=== PATIENT | female | born 1950 | race Caucasian/White ===

== ENCOUNTER → 2017-03-31 | Outpatient (CLI) | payer OTHER ==
[2017-03-31 12:06] LABS: BUN 17 mg/dL (7-18)
[2017-03-31 12:12] LABS: GFR (ESTIMATED) 63 ML/MIN (59-)
== END ==
LOC: LAB 09:52
PROVIDERS: Family Medicine
DX: I10 Essential (primary) hypertension (principal); E03.9 Hypothyroidism, unspecified; E55.9 Vitamin D deficiency, unspecified; M25.50 Pain in unspecified joint